=== PATIENT | male | born 1955 | race Caucasian/White ===

== ENCOUNTER 2019-05-31 07:03 | Day surgery (SDC) | payer MEDICAID ==
[~2019-05-31] VITALS: Ht 188 cm; Wt 87.5 kg
[2019-05-31] MEDS ORDERED: LIDOCAINE 2% 100 MG/5 ML UJET TP ONE (09:54)
[2019-05-31] MEDS ORDERED: fentaNYL 0.05 MG/ML VIAL ONE (09:54)
[2019-05-31] MEDS ORDERED: fentaNYL 0.025 MG/HR PATCH TD SCH (11:05)
[2019-05-31] MEDS ORDERED: fentaNYL 0.05 MG/ML VIAL IVP ONE (11:25)
== END 2019-05-31 10:47 | disposition home or self-care (01) ==
LOC: MOR 07:03 → MMU 07:25 → MOR 10:47
PROVIDERS: ATTEND Internal Medicine Gastroenterology
DX: K59.00 Constipation, unspecified (principal); K64.8 Other hemorrhoids; Z87.891 Personal history of nicotine dependence; Z86.010 Personal history of colon polyps
CPT/HCPCS: 45378; J3010